=== PATIENT | male | born 1940 | race American Indian/Alaskan Native ===

== ENCOUNTER 2017-06-27 06:16 | Emergency (ER) | payer MEDICARE, OTHER ==
[2017-06-27] MEDS ORDERED: ZOFRAN IM ONE (06:58)
[2017-06-27 07:17] LABS: Basophils % (Auto) 0.4 % (0.0-1.8); Eosinophils % (Auto) 1.6 % (0.0-4.3); Hematocrit 45.3 % (35.5-45.6); Mean Corpuscular HGB Conc 33 % (32-34); Mean Corpuscular Hemoglobin 34 pg (28-32); Mean Corpuscular Volume 102 fl (84-94); Platelet Count 220 K/mm3 (140-440); Red Blood Count 4.44 M/mm3 (3.65-5.03); Red Cell Distribution Width 12.6 % (13.2-15.2); White Blood Count 10.9 K/mm3 (4.5-11.0)
[2017-06-27 07:34] LABS: Anion Gap 20 mmol/L; BUN/Creatinine Ratio 13.75; Blood Urea Nitrogen 11 mg/dL (9-20); Calcium 9.7 mg/dL (8.4-10.2); Carbon Dioxide 23 mmol/L (22-30); Chloride 102.6 mmol/L (98-107); Glucose 149 mg/dL (75-100); Potassium 3.5 mmol/L (3.6-5.0); Sodium 142 mmol/L (137-145)
[2017-06-27] MEDS ORDERED: ZOFRAN IV ONE (10:19)
[2017-06-27] MEDS ORDERED: NACL 0.9% 1000 ML 1,000 ML IV ONE (10:19)
[2017-06-27] MEDS ORDERED: MORPHINE IV ONE (10:19)
--- NOTE | 2017-06-27 10:34 | Emergency Department Report ---
HPI - General Chief Complaint: Nausea/Vomiting/Diarrhea Time Seen by Provider: 06/27/17 10:12 - HPI HPI: The patient is a 77-year-old male who presents for evaluation of abdominal pain. The patient reports lower abdominal pain since 5 AM this morning, approximately 2 hours prior to arrival, constant since onset, mild in severity, 2/10 in severity currently, cramping in quality. He also reports associated nausea, nonbilious, nonbloody emesis, and loose watery stools, void of blood. The patient denies fever, chills, night sweats, blood in the stool, dark tarry stool, dysuria, hematuria, flank pain, genital discharge, inability to pass flatus. ED Past Medical Hx - Past Medical History Previous Medical History?: No Hx Hypertension: Yes Hx Heart Attack/AMI: Yes Hx Diabetes: Yes Hx GERD: Yes Hx Dementia: Yes - Surgical History Past Surgical History?: Yes Additional Surgical History: Cardiac Stents - Social History Smoking Status: Never Smoker Substance Use Type: Alcohol - Medications Home Medications: Home Medications Medication Instructions Recorded Confirmed Last Taken Type Acetaminophen 500 mg PO BID PRN 06/27/17 06/27/17 Unknown History Aspirin BABY CHEW TAB 81 mg PO DAILY 06/27/17 06/27/17 Unknown History AtorvaSTATin 40 mg PO HS 06/27/17 06/27/17 Unknown History Clopidogrel Bisulfate 75 mg PO DAILY 06/27/17 06/27/17 Unknown History Donepezil HCl 10 mg PO DAILY 06/27/17 06/27/17 Unknown History Folic Acid 1 mg PO DAILY 06/27/17 06/27/17 Unknown History Gabadone Capsule 300 mg PO DAILY 06/27/17 06/27/17 Unknown History Losartan 50 mg PO DAILY 06/27/17 06/27/17 Unknown History Metoprolol Tartrate 25 mg PO DAILY 06/27/17 06/27/17 Unknown History Multiple Vitamin/Mineral 1 tab PO DAILY 06/27/17 06/27/17 Unknown History (Theragran M) Omeprazole 40 mg PO DAILY 06/27/17 06/27/17 Unknown History Ondansetron [Zofran TAB] 4 mg PO Q8HR PRN #20 tablet 06/27/17 Unknown Rx Thiamine HCl 100 mg PO DAILY 06/27/17 06/27/17 Unknown History glipiZIDE 5 mg PO DAILY 06/27/17 06/27/17 Unknown History traMADol [Ultram 50 MG tab] 50 mg PO Q6HR PRN #15 tablet 06/27/17 Unknown Rx ED Review of Systems ROS: Stated complaint: N/V, DIARRHEA Other details as noted in HPI Constitutional: denies: fever ENT: denies: throat or neck pain Respiratory: denies: cough, shortness of breath Cardiovascular: denies: chest pain Endocrine: denies unexplained weight loss or gain Gastrointestinal: reports abdominal pain, nausea, v, d Genitourinary: denies: dysuria Musculoskeletal: denies: leg swelling Skin: denies: rash Neurological: denies: headache Hematological/Lymphatic: denies: easy bleeding or easy bruising Psych: denies sadness or hopelessness Physical Exam - Physical Exam Vital Signs: Vital Signs 06/27/17 06/27/17 06/27/17 06:21 09:56 09:57 Temperature 97.4 F L Pulse Rate 72 Respiratory 18 Rate Blood Pressure 165/85 O2 Sat by Pulse 97 85 95 Oximetry 06/27/17 06/27/17 06/27/17 09:58 10:00 10:01 Temperature Pulse Rate Respiratory 18 Rate Blood Pressure 119/88 119/88 129/68 O2 Sat by Pulse 92 91 91 Oximetry Physical Exam: General: well-nourished, well-developed, no acute distress Head: Normocephalic, atraumatic Eyes: normal sclera ENT: Mucous membranes are pale and dry Neck: trachea midline, neck supple, No neck stiffness, no cervical adenopathy Respiratory: Breath sounds equal bilaterally, no wheezing, rales, or rhonchi Cardio: S1 and S2 present, no murmurs, rubs, gallops, capillary refill is delayed Abdomen: Normoactive bowel sounds, soft abdomen, LLQ and RLQ tenderness to palpation present, no rigidity, no guarding or rebound tenderness Chest WALL/Back: No tenderness to palpation of the chest wall, no CVA tenderness with percussion Musc: No pitting edema Skin: No rash Neuro: no facial drooping, normal speech Psych: Normal affect ED Course Vital Signs 06/27/17 06/27/17 06/27/17 06:21 09:56 09:57 Temperature 97.4 F L Pulse Rate 72 Respiratory 18 Rate Blood Pressure 165/85 O2 Sat by Pulse 97 85 95 Oximetry 06/27/17 06/27/17 06/27/17 09:58 10:00 10:01 Temperature Pulse Rate Respiratory 18 Rate Blood Pressure 119/88 119/88 129/68 O2 Sat by Pulse 92 91 91 Oximetry ED Medical Decision Making - Lab Data Result diagrams: 06/27/17 07:06 06/27/17 07:06 - Medical Decision Making The patient was seen and examined by myself. The patient is placed on a primary counselor and continuous pulse ox. On initial evaluation, the patient was found to be in no distress. Evaluation orders are placed. IV access is established and the patient is given 1 L normal saline fluid bolus and Zofran for nausea, and IV analgesic for pain. Lab results were non-concerning including WBC, hemoglobin, hematocrit, electrolytes, renal function, LFTs, lipase. The patient was reevaluated and reported that their symptoms were markedly improved. The patient is stable for discharge with outpatient follow-up. The patient is given follow-up and return instructions. The patient expressed understanding and agreed with the plan. The patient is discharged in stable condition. Critical care attestation.: If time is entered above; I have spent that time in minutes in the direct care of this critically ill patient, excluding procedure time. ED Disposition Clinical Impression: Abdominal pain, acute, bilateral lower quadrant, Dehydration, Nausea and vomiting in adult Diarrhea Qualifiers: Diarrhea type: unspecified type Qualified Code(s): R19.7 - Diarrhea, unspecified Disposition: DC-01 TO HOME OR SELFCARE Is pt being admited?: No Does the pt Need Aspirin: No Condition: Stable Instructions: Gastroenteritis (ED), Food Poisoning (ED), Nutrition Tips for Relief of Diarrhea (ED) Prescriptions: Ondansetron [Zofran TAB] 4 mg PO Q8HR PRN #20 tablet PRN Reason: Nausea traMADol [Ultram 50 MG tab] 50 mg PO Q6HR PRN #15 tablet PRN Reason: Pain Referrals: PRIMARY CARE, [Primary Care Provider] - 3-5 Days [facility] [Provider Group] - 3-5 Days Time of Disposition: 10:34
[2017-06-27 11:24] LABS: Albumin 4.4 g/dL (3.9-5); Albumin/Globulin Ratio 1.1 %; Bilirubin,Direct 0.2 mg/dL (0-0.2); Bilirubin,Indirect 0.9 mg/dL; Bilirubin,Total 1.1 mg/dL (0.1-1.2); Total Protein 8.4 g/dL (6.3-8.2)
[2017-06-27 13:20] LABS: Bilirubin,Urine NEG (Negative); Blood,Urine NEG (Negative); Ketones,Urine NEG (Negative); Leukocyte Esterase,Urine NEG (Negative); Mucus,Urine FEW /HPF; Nitrite,Urine NEG (Negative); Protein,Urine <15 mg/dL mg/dL (Negative)
[2017-06-27 13:39] VITALS: BP 151/85
== END 2017-06-27 14:06 | disposition home or self-care (01) ==
LOC: ED 06:16
DX: R10.31 Right lower quadrant pain (principal); R10.32 Left lower quadrant pain; E86.0 Dehydration; R11.2 Nausea with vomiting, unspecified; R19.7 Diarrhea, unspecified; K21.9 Gastro-esophageal reflux disease without esophagitis; I25.2 Old myocardial infarction; Z79.82 Long term (current) use of aspirin
CPT/HCPCS: 36415; 80048; 80074; 81001; 82962; 83690; 85025; 93005; 93010; 96361; 96372; 96374; 96375; 99284; J2270; J2405; J7030